=== PATIENT | female | born 1970 | race Caucasian/White ===

== ENCOUNTER 2018-10-26 00:33 | Emergency (ER) | payer MEDICAID | END 2018-10-26 05:22 | disposition home or self-care (01) | LOC: FTE 05:22 | DX: R51 Headache (principal); E11.9 Type 2 diabetes mellitus without complications | CPT/HCPCS: 70450; 70480; 99284-25 ==

== ENCOUNTER 2019-06-04 15:47 | Emergency (ER) | payer MEDICAID ==
[2019-06-04] MEDS: ACETAMINOPHEN 325 MG TAB PO (17:24)
== END 2019-06-04 17:48 | disposition home or self-care (01) ==
LOC: FTE 15:47
DX: H10.9 Unspecified conjunctivitis (principal); E11.9 Type 2 diabetes mellitus without complications
CPT/HCPCS: 99283; Z7502